=== PATIENT | female | born 1955 ===

== ENCOUNTER 2020-09-26 13:52 | Outpatient (CLI) | payer OTHER | END 2020-09-26 18:00 | disposition home or self-care (01) | LOC: PPH VACUNA 13:52 | DX: Z23 Encounter for immunization (principal) ==

== ENCOUNTER 2021-07-01 08:00 | Outpatient (CLI) | payer OTHER | END 2021-07-01 09:18 | disposition home or self-care (01) | LOC: PPH VACUNA 08:00 | PROVIDERS: ATTEND Emergency Medicine Pediatric Emergency Medicine | DX: Z23 Encounter for immunization (principal) ==